=== PATIENT | female | born 1995 | race African-American/Black ===

== ENCOUNTER 2019-05-29 01:39 | Emergency (ER) | payer MEDICAID ==
[~2019-05-29] VITALS: Ht 170.2 cm; Wt 67.1 kg
[2019-05-29 02:01] VITALS: Ht 170.2 cm; Wt 67.1 kg
[2019-05-29 06:14] VITALS: BP 104/60
== END 2019-05-29 06:14 | disposition home or self-care (01) ==
LOC: ED 01:39
DX: S20.462A Insect bite (nonvenomous) of left back wall of thorax, initial encounter (principal); S20.461A Insect bite (nonvenomous) of right back wall of thorax, initial encounter; S80.862A Insect bite (nonvenomous), left lower leg, initial encounter; S80.861A Insect bite (nonvenomous), right lower leg, initial encounter; W57.XXXA Bitten or stung by nonvenomous insect and other nonvenomous arthropods, initial encounter; Y93.89 Activity, other specified; Y92.89 Other specified places as the place of occurrence of the external cause; Y99.8 Other external cause status

== ENCOUNTER 2019-06-08 15:02 | Emergency (ER) | payer MEDICAID ==
[~2019-06-08] VITALS: Ht 170.2 cm; Wt 67.6 kg
[2019-06-08 15:03] VITALS: Ht 170.2 cm; Wt 67.6 kg
[2019-06-08 16:17] VITALS: BP 108/65
== END 2019-06-08 16:17 | disposition home or self-care (01) ==
LOC: ED 15:02
DX: H10.213 Acute toxic conjunctivitis, bilateral (principal)

== ENCOUNTER 2020-03-28 09:30 | Emergency (ER) | payer OTHER ==
[~2020-03-28] VITALS: Ht 170.2 cm; Wt 69.9 kg
[2020-03-28 09:37] VITALS: Ht 170.2 cm; Wt 69.9 kg
[2020-03-28 11:00] VITALS: BP 104/68
== END 2020-03-28 11:00 | disposition home or self-care (01) ==
LOC: ED 09:30
DX: N39.0 Urinary tract infection, site not specified (principal)